=== PATIENT | female | born 1995 | race Two or more races ===

== ENCOUNTER 2023-06-01 08:31 | Day surgery (SDC) | payer BC, SELFPAY ==
[2023-05-18 10:58] LABS: Urine Albumin Negative (Neg - Trace); Urine Bilirubin Negative (Negative); Urine Character Clear (Clear); Urine Color Yellow; Urine Glucose Negative (Negative); Urine Ketone Negative (Negative); Urine Leukocyte Negative (Negative); Urine Nitrite Negative (Negative); Urine Occult Blood Trace (Negative); Urine Specific Gravity 1.005 (<1.030); Urine Urobilinogen Negative (Neg - 1+)
[2023-05-18 12:05] VITALS: BMI 27.1
[2023-05-18 12:06] LABS: Urine Amorphous Seen; Urine Mucus Few; Urine Squamous Cell 16-20 /LPF (Few)
[2023-05-18 12:07] LABS: Urine Bacteria Few (Negative); Urine Red Blood Cell 0-2 /HPF (0-2); Urine White Cell 0-2 /HPF (0-5)
[2023-06-01] VITALS (10 sets, daily range): BP systolic 85–109; BP diastolic 57–87; BMI 27.1
[2023-06-01] MEDS: NORMOSOL-R 1000 IV (09:30)
[2023-06-01] MEDS: Pyridium 200 MG PO (11:43)
== END 2023-06-01 12:33 | disposition home or self-care (01) ==
LOC: SDS 08:31
PROVIDERS: ATTENDING PHYSICIAN Urology; FAMILY PHYSICIAN Family Medicine
DX: N30.10 Interstitial cystitis (chronic) without hematuria (principal)
CPT/HCPCS: 52260; 88305; 36415; 81003; 81015